=== PATIENT | male | born 1985 | race African-American/Black ===

== ENCOUNTER 2017-03-05 11:30 | Emergency (ER) | payer OTHER ==
[~2017-03-05] VITALS: Ht 162.6 cm; Wt 77.1 kg
[~2017-03-05 11:30] MED LIST: BENADRYL25 MG PO; CRUTCH1 EACH MC; NORCO 5-325 TA1 EACH PO; PREDNISONE 10 M10 M1 PO; ZOFRAN ODT4 MG PO
[2017-03-05] MEDS ORDERED: PENICILLIN V P500 MG PO (11:58)
[2017-03-05 12:04] VITALS: BP 144/78
== END 2017-03-05 12:05 | disposition home or self-care (01) ==
LOC: M.ERS 11:30
DX: K08.89 Other specified disorders of teeth and supporting structures (principal); F17.210 Nicotine dependence, cigarettes, uncomplicated; J45.909 Unspecified asthma, uncomplicated